=== PATIENT | male | born 1960 | race African-American/Black ===

== ENCOUNTER → 2016-06-05 | Outpatient (CLI) | payer OTHER ==
[2014-07-04 22:00] VITALS: BP 140/89
--- NOTE | 2016-06-05 11:16 | RAD ---
Lumbar spine, 4 views, 06/05/2016: History: Postop evaluation, fall AP and lateral views of the lumbar spine were obtained. Upright lateral views were obtained in neutral, flexion and extension. There are bilateral pedicle screws in place at L4 and L5 attached to longitudinally oriented posterior fixation rods. A partially radiopaque disc spacer is present at L4-5. There has been a laminectomy at this level. There is a slight spondylolisthesis at L4-5 which does not change significantly with flexion or extension. The vertebral heights are well-maintained. There are mild scattered spurs in the upper lumbar spine. Aortic calcific plaquing is noted. IMPRESSION: 1. Changes of a posterior spinal fusion with instrumentation at L4-5. 2. Minimal spondylolisthesis at L4-5. 3. No acute abnormality is detected.
== END | disposition home or self-care (01) ==
LOC: RAD 10:32
PROVIDERS: ATTEND Nurse Practitioner
DX: M79.604 Pain in right leg (principal); M43.17 Spondylolisthesis, lumbosacral region
CPT/HCPCS: 72110

== ENCOUNTER → 2016-06-27 | Outpatient (CLI) | payer OTHER ==
[2014-07-04 22:00] VITALS: BP 140/89
--- NOTE | 2016-06-27 10:16 | RAD ---
Indication pain. Grayscale color Doppler and spectral imaging was performed. Examination was targeted to the arteries of the right lower extremity. Moderate plaquing is noted associated with the superficial femoral artery. There is a biphasic to triphasic waveform seen in the common femoral artery. A similar waveform is seen in the deep femoral. Biphasic to triphasic waveforms are seen throughout the course of the superficial femoral artery extending into the popliteal artery. The peroneal artery has a similar waveform. There is a biphasic to triphasic waveform in the anterior tibial artery. The dorsal pedal artery waveform is also biphasic to triphasic as is the posterior tibial artery IMPRESSION: No evidence of high-grade arterial disease involving the major vessels of the right lower extremity
== END | disposition home or self-care (01) ==
LOC: US 11:14
PROVIDERS: ATTEND Family Medicine
DX: M79.604 Pain in right leg (principal)
CPT/HCPCS: 93926

== ENCOUNTER 2016-10-18 07:52 | Emergency (ER) | payer OTHER ==
[~2016-10-18] VITALS: Ht 180.3 cm; Wt 68.0 kg
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
[2016-10-18] MEDS ORDERED: IBUPROFEN 800 MG TABLET. PO ONE (09:15)
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
[2016-10-18 09:45] LABS: BILIRUBIN,URINE NEGATIVE (NEG); GLUCOSE,URINE NEGATIVE (NEG); NITRITE,URINE NEGATIVE (NEG); PROTEIN,URINE NEGATIVE (NEG-TRACE); UROBILINOGEN,URINE 0.2 mg/dL (0.2 mg/dL)
[2016-10-18 09:58] LABS: BACTERIA,URINE 0 /HPF (0-FEW); RBC,URINE 0 /HPF (0-2); SQUAMOUS EPITHELIAL CELL,UR OCC /LPF; WBC,URINE 0 /HPF (0-4)
[2016-10-18] MEDS ORDERED: CYCL10TA2 PO (10:12)
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
[2016-10-18 10:20] VITALS: BP 145/88
== END 2016-10-18 10:25 | disposition home or self-care (01) ==
LOC: ER 07:52
DX: M54.5 Low back pain (principal); M54.6 Pain in thoracic spine; M79.662 Pain in left lower leg; M79.661 Pain in right lower leg; I10 Essential (primary) hypertension; Y04.0XXA Assault by unarmed brawl or fight, initial encounter; Y93.01 Activity, walking, marching and hiking; Y92.89 Other specified places as the place of occurrence of the external cause; Y99.8 Other external cause status
CPT/HCPCS: 72072; 72110; 73590; 81001; 99285

== ENCOUNTER 2016-12-17 12:11 | Emergency (ER) | payer OTHER ==
[~2016-12-17] VITALS: Ht 180.3 cm; Wt 67.1 kg
[~2016-12-17 12:11] MED LIST: CYCL10TA2 PO
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
[2016-12-17] MEDS ORDERED: oxyCODONE IR 5 MG TABLET PO ONE (13:00)
[2016-12-17] MEDS ORDERED: IBUPROFEN 600 MG TABLET. PO ONE (13:00)
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
[2016-12-17 14:07] VITALS: BP 118/82
== END 2016-12-17 14:00 | disposition home or self-care (01) ==
LOC: ER 12:11
DX: M54.5 Low back pain (principal); I10 Essential (primary) hypertension
CPT/HCPCS: 72100; 99284

== ENCOUNTER 2017-05-01 15:34 | Emergency (ER) | payer OTHER ==
[2017-05-01] MEDS: traMADol 50 MG TABLET PO ×2 (16:25)
== END 2017-05-01 17:01 | disposition home or self-care (01) ==
LOC: ER 15:34
DX: M54.2 Cervicalgia (principal); M54.89 Other dorsalgia; I10 Essential (primary) hypertension
CPT/HCPCS: 72040; 72100; 99284

== ENCOUNTER 2017-05-03 09:36 | Emergency (ER) | payer OTHER ==
[2017-05-03] MEDS: diazePAM 5 MG TABLET PO ×2 (10:37)
[2017-05-03] MEDS: oxyCODONE ER 15 MG TAB.ER.12H PO ×2 (10:37)
== END 2017-05-03 10:45 | disposition home or self-care (01) ==
LOC: ER 09:36
DX: M54.41 Lumbago with sciatica, right side (principal); M54.42 Lumbago with sciatica, left side; G89.29 Other chronic pain; I10 Essential (primary) hypertension; F17.200 Nicotine dependence, unspecified, uncomplicated; V49.60XD Unspecified car occupant injured in collision with unspecified motor vehicles in traffic accident, subsequent encounter
CPT/HCPCS: 99284

== ENCOUNTER 2017-08-09 11:05 | Emergency (ER) | payer OTHER | END 2017-08-09 13:12 | disposition home or self-care (01) | LOC: ER 11:05 | DX: S20.212A Contusion of left front wall of thorax, initial encounter (principal); I10 Essential (primary) hypertension; W28.XXXA Contact with powered lawn mower, initial encounter; Y93.89 Activity, other specified; Y99.8 Other external cause status; Y92.89 Other specified places as the place of occurrence of the external cause | CPT/HCPCS: 71101; 93005; 99284 ==

== ENCOUNTER 2017-08-15 11:07 | Emergency (ER) | payer OTHER ==
[2017-08-15] MEDS ORDERED: MORPHINE SULFATE 10 MG/ML VIAL. IV (12:15)
[2017-08-15] MEDS: IPRATRPIUM/ALBUTEROL 0.5/2.5MG 3 ML NEBU. NEB (12:23)
[2017-08-15] MEDS: predniSONE 10 MG TABLET PO (13:07)
[2017-08-15] MEDS: MORPHINE SULFATE 10 MG/ML VIAL. IM (13:10)
[2017-08-15] MEDS: AZITHROMYCIN 250 MG TABLET. PO (14:10)
== END 2017-08-15 14:10 | disposition home or self-care (01) ==
LOC: ER 11:07
DX: R07.81 Pleurodynia (principal); R51 Headache; R05 Cough; I10 Essential (primary) hypertension; Z87.81 Personal history of (healed) traumatic fracture; Z87.891 Personal history of nicotine dependence
CPT/HCPCS: 71046; 71250; 94640; 96372; 99284-25; G0238; J2270; J7512; J7620; Q0144

== ENCOUNTER → 2020-11-01 | Outpatient (CLI) | payer MEDICARE, OTHER ==
[2017-08-15 14:08] VITALS: BP 148/100
[~2020-11-01] MED LIST changes: +AZIT250T6 PO; +DICL100G54 TP; +DICL50TA4 PO; +HYDR-3135 PO; +IBUP-1060 PO; +METH4TAB2 PO; +NAPR500T8 PO; +OXYC1TAB15 PO; +PRED50TA PO; +TRAM50TA PO
--- NOTE | 2020-11-01 10:20 | RAD ---
EXAM: CT CHEST WITHOUT CONTRAST (LDCT LUNG CANCER SCREENING). HISTORY: Risk factors for pulmonary malignancy. Tobacco abuse. TECHNIQUE: CT of the chest was performed without intravenous contrast using a low-dose lung screening protocol. Findings analysis is based on ACR Lung-RADS v1.1. *One or more of the following individual ized dose reduction techniques were utilized for this examination: 1. Automated exposure control. 2. Adjustment of the mA and/or kV according to patient size. 3. Use of iterative reconstruction technique. COMPARISON: 08/15/2017. FINDINGS: The heart is normal in size. The visualized aorta is normal in caliber. There is no lymphad enopathy. There is no pneumothorax or pleural effusion. There is mild pulmonary emphysema with right apical subpleural and medial upper lobe bleb formation and apical pleural parenchyma scarring. There is mild central bronchial wall thickening. There is no infiltrate. There is no suspicious pulmonary n odule. There is an incidental small right shoulder intramuscular lipoma. There is no acute or suspici ous finding involving the upper abdomen. There is no acute or suspicious osseous finding. There are 1 1 paired thoracic ribs. There is a chronic mild wedge compression fracture of L1. IMPRESSION/RECOMMENDATION: 1. ACR Lung-RADS category: 1. Continue annual screening with LDCT in 12 months. 2. Pulmonary emphysema. 3. Mild central bronchial wall thickening, a finding which can be seen as a sequela of bronchitis. Electronically signed by: Viviana Lou MD (11/01/2020 10:17 AM) [id number]
== END ==
LOC: CT 09:07
PROVIDERS: ATTEND Family Medicine
DX: Z12.2 Encounter for screening for malignant neoplasm of respiratory organs (principal); J43.9 Emphysema, unspecified; J98.4 Other disorders of lung; D17.79 Benign lipomatous neoplasm of other sites; M48.56XA Collapsed vertebra, not elsewhere classified, lumbar region, initial encounter for fracture; Z72.0 Tobacco use
CPT/HCPCS: 71271